=== PATIENT | male | born 1955 | race Caucasian/White ===

== ENCOUNTER → 2024-04-22 | Outpatient (CLI) | payer MEDICARE ==
--- NOTE | 2024-04-24 10:15 | MR ---
EXAMINATION TYPE: MR Prostate wo/w con DATE OF EXAM: 04/22/2024 9:48 AM COMPARISON: None. CLINICAL INDICATION: Male, 68 years old with history of R97.20 ELEVATED PROSTATE SPECIFIC ANTIGEN [PS A]; elevated psa TECHNIQUE: Multi-planar, multi-sequence imaging of the pelvis is performed prior to and following the uncomplicated administration of bolus intravenous gadolinium. IV Contrast: 9 mL Gadobutrol Interpretive Criteria: PI-RADS v2.1 SERUM PSA: 12-1724 = 5.8 2-24 = 4.26 SURGICAL PATHOLOGY: No data available. FINDINGS: Prostatic dimensions: 7.1 x 7.6 x 5.7 cm. Ellipsoid Volume:161.04 (PSA density=0.04 ng/mL/mL) CENTRAL GLAND (Central and Transition Zones/CZ+TZ): Multiple bilateral, heterogenous appearing hypertrophic stromal nodules, without suspicious lesion. M edian lobe hypertrophy with protrusion into the base of the bladder. (PI-RADS 2) PERIPHERAL ZONE (PZ): Gas in the rectum limits evaluation of the posterior prostate gland. Bilateral linear, indistinct wedgelike areas of low ADC, and low T2 signal, No evidence of masslike a bnormality, or localized perfusional hypervascularity, to further suggest a focus of clinically signi ficant prostate cancer. (PI-RADS 2) SEMINAL VESICLES (SV): Symmetric and unremarkable. PERIPROSTATIC TISSUES: Unremarkable. LYMPH NODES: No enlarged pelvic lymph node. REMAINING PELVIS: Circumferential bladder wall thickening with trabeculations likely secondary to chronic bladder outfl ow obstruction. No abnormal free or organized intrapelvic fluid collection. No pathologic bowel dilation or mural thickening. No hernia visualized OSSEOUS STRUCTURES: No suspicious osseous abnormality. Increased T2 signal in the origin of the left hamstrings suggestive of tendinosis There is a low T2 signal area arising off the left superior pubic ramus extending superiorly unknown etiology. This is thought to be bone and projects superiorly. IMPRESSION: 1. No specific features for high-risk prostate cancer. Maximum PI-RADS score: 2. 2. Substantial BPH, estimated gland volume 161.04 (PSA density=0.04 ng/mL/mL) 3. No suspicious osseous lesion. No lymphadenopathy. No evidence of prostate adenocarcinoma involving the periprostatic tissues. 4. Bony protuberance/lesion off the left suprapubic ramus consider correlation with plain film radiog raphs. [facility], , 04/24/2024 10:13 AM
== END | disposition home or self-care (01) ==
LOC: RADMRIMAIN 08:33
PROVIDERS: ATTEND Urology
DX: N40.0 Benign prostatic hyperplasia without lower urinary tract symptoms (principal); R97.20 Elevated prostate specific antigen [PSA]
CPT/HCPCS: 72197; A9585

== ENCOUNTER → 2024-05-01 | Outpatient (CLI) | payer MEDICARE ==
--- NOTE | 2024-05-01 14:33 | NM ---
EXAMINATION TYPE: NM bone scan whole body DATE OF EXAM: 05/01/2024 COMPARISON: NONE CLINICAL INDICATION: Male, 68 years old with history of M89.9 DISORDER OF BONE, UNSPECIFIED; Delayed whole-body scanning was performed following the injection of 24.3 mCi Tc 99m MDP. Images acq uired 3 hours post injection. FINDINGS: Degenerative uptake about the shoulders and wrists as well as the knees and toes. No intense uptake t o suggest metastatic disease to the bone at this time. IMPRESSION: No scintigraphic evidence to suggest metastatic disease to the bone. [facility], , 05/01/2024 2:30 PM
== END | disposition home or self-care (01) ==
LOC: RADNMMAIN 10:37
PROVIDERS: ATTEND Urology
DX: M89.9 Disorder of bone, unspecified (principal)
CPT/HCPCS: 78306; A9503